=== PATIENT | male | born 1935 | race Caucasian/White ===

== ENCOUNTER → 2018-03-15 | Outpatient (CLI) | payer OTHER ==
--- NOTE | 2018-03-15 16:15 | CPEKG ---
Heart Rate: 43 RR Interval: 1395 P-R Interval: 172 QRSD Interval: 98 QT Interval: 444 QTC Interval: 376 P [place]: 31 QRS [place]: 68 T Wave [place]: 71 EKG Severity - ABNORMAL ECG - EKG Impression: SINUS BRADYCARDIA Electronically Signed By: Blu Benitez 15-Mar-2018 17:32:32
== END ==
LOC: FCP 16:04
PROVIDERS: ATTEND Ophthalmology
DX: Z01.818 Encounter for other preprocedural examination (principal)